=== PATIENT | female | born 1980 | race Caucasian/White ===

== ENCOUNTER 2018-09-05 21:53 | Emergency (ER) | payer SELFPAY, OTHER ==
[2018-09-06] MEDS: morphine 4 MG/ML VIAL IV (00:15)
[2018-09-06] MEDS: ONDANSETRON 4 MG INJ IV (00:15)
[2018-09-06 00:32] LABS: ADD MAN DIFF? NO
[2018-09-06 00:37] LABS: WHITE BLOOD COUNT 7.3 10^3/ul (4.8-10.8)
[2018-09-06 00:37] LABS: BASOPHILS % 0.4 % (0.0-2.0); EOSINOPHILS # 0.2 10^3/ul (0.0-0.5); EOSINOPHILS % 2.2 % (0.0-7.0); HEMATOCRIT 39.7 % (37.0-47.0); HEMOGLOBIN 13.1 g/dl (12.0-16.0); LYMPHOCYTES % 41.8 % (15.0-51.0); MEAN CORPUSCULAR HEMOGLOBIN 29.8 pg (29.0-33.0); MEAN CORPUSCULAR VOLUME 90.4 fl (82.0-101.0); MEAN PLATELET VOLUME 10.5 fl (7.4-10.4); MONOCYTE # 0.8 10^3/ul (0.3-0.9); MONOCYTES % 11.4 % (0.0-11.0); NEUTROPHIL # 3.2 10^3/ul (1.6-7.5); NEUTROPHILS % 43.9 % (39.0-77.0); PLATELET COUNT 255 10^3/UL (140-415); RED BLOOD COUNT 4.39 10^6/ul (4.20-5.40); RED CELL DISTRIBUTION WIDTH 12.5 % (11.5-14.5)
[2018-09-06 00:38] LABS: ADD UMIC NO; UR ASCORBIC ACID NEGATIVE (NEGATIVE); UR BILIRUBIN (Dip) NEGATIVE (NEGATIVE); UR BLOOD (Dip) NEGATIVE (NEGATIVE); UR CLARITY CLEAR (CLEAR); UR COLOR STRAW (YELLOW); UR GLUCOSE (Dip) NEGATIVE (NEGATIVE); UR KETONES (Dip) TRACE mg/dL (NEGATIVE); UR LEUKOCYTE ESTERASE (Dip) NEGATIVE Leu/ul (NEGATIVE); UR NITRITE (Dip) NEGATIVE (NEGATIVE); UR SPECIFIC GRAVITY (Dip) 1.011 (1.003-1.030); UR TOTAL PROTEIN (Dip) NEGATIVE (NEGATIVE); UR UROBILINOGEN (Dip) NEGATIVE (NEGATIVE)
[2018-09-06] MEDS: SOD CHLORIDE 0.9% 1,000 ML IV (00:56)
[2018-09-06 01:09] LABS: ALANINE AMINOTRANSFERASE 32 IU/L (13-69); ALBUMIN 4.5 g/dl (3.3-4.9); ALBUMIN/GLOBULIN RATIO 1.45; ALKALINE PHOSPHATASE 80 IU/L (42-121); ANION GAP 8 (5-13); ASPARTATE AMINO TRANSFERASE 36 IU/L (15-46); BILIRUBIN,INDIRECT 0.4 mg/dl (0-1.1); BILIRUBIN,TOTAL 0.4 mg/dl (0.2-1.3); BLOOD UREA NITROGEN 10 mg/dl (7-20); CALCIUM 9.8 mg/dl (8.4-10.2); CARBON DIOXIDE 31 mmol/L (21-31); CHLORIDE 101 mmol/L (97-110); CREATININE 0.55 mg/dl (0.44-1.00); Estimated GFR > 60 mL/min (>60); GLUCOSE 93 mg/dl (70-220); LIPASE 50 U/L (23-300); POTASSIUM 4.1 mmol/L (3.5-5.1); SODIUM 140 mmol/L (135-144); TOTAL PROTEIN 7.6 g/dl (6.1-8.1)
[2018-09-06] MEDS: LIDOCAINE/MYLANTA 40 ML BTL PO (01:48)
[2018-09-06] MEDS: METOCLOPRAMIDE 10 MG INJ IV (02:44)
== END 2018-09-06 03:14 | disposition home or self-care (01) ==
LOC: FTE 21:53
DX: R10.13 Epigastric pain (principal)
CPT/HCPCS: 36415; 76705; 80053; 81003; 83690; 84703; 85025; 96374; 96375; 99285-25

== ENCOUNTER 2018-11-13 22:43 | Emergency (ER) | payer OTHER ==
[2018-11-14] MEDS: MAGNESIUM CITRATE 300 ML BTL PO (00:48)
[2018-11-14] MEDS: KETOROLAC 30 MG INJ IM (00:49)
[2018-11-14] MEDS: ONDANSETRON (ODT) 4 MG TAB ODT (01:02)
[2018-11-14] MEDS ORDERED: GLYCERIN (ADULT) SUPP PR (02:00)
[2018-11-14] MEDS: GLYCERIN (ADULT) SUPP PR (02:11)
== END 2018-11-14 02:48 | disposition home or self-care (01) ==
LOC: FTE 11-14 02:48
DX: K59.00 Constipation, unspecified (principal)
CPT/HCPCS: 81025; 96372; 99284-25